=== PATIENT | female | born 1980 | race Caucasian/White ===

== ENCOUNTER 2021-04-07 09:17 | Emergency (ER) | payer OTHER ==
[~2021-04-07] VITALS: Ht 157.5 cm; Wt 62.6 kg
--- OUTSIDE RECORDS SUMMARY | 2021-04-07 09:26 | XMS ---
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 Kathi has no Care Guidelines for this patient. [place] VISIT COUNT (12 MO.) 1 [facility] TOTAL 1 NOTE: Visits indicate total known visits. ED/C VISIT TRACKING (12 MO.) 04/07/2021 09:19 [facility] [place] TYPE: Emergency COMPLAINT: - DIFFICULTY BREATHING, SHAKY, ANXIOUS INPATIENT VISIT TRACKING (12 MO.) No inpatient visits to display in this time frame [id number]
[2021-04-07] MEDS ORDERED: FLUOXETINE HCL40 MG PO (09:38)
[2021-04-07] MEDS ORDERED: ONDANSETRON ODT8 MG PO (10:57)
[2021-04-07] MEDS ORDERED: HYDROXYZINE HCL25 MG PO (10:57)
--- NOTE | 2021-04-09 17:50 | EKG ---
[facility] [address] [place], [place] [address] Signed Sinus tachycardia Otherwise normal ECG No previous ECGs available Confirmed by GHAZALA SALDAÑA MD ([id number]) on 04/09/2021 5:50:19 PM Electronically Signed By: GHAZALA SALDAÑA MD 04/09/21 1750 PATIENT NAME: ESTEE HUNG Electrocardiogram DATE OF : 82 PHYSICIAN: GHAZALA SALDAÑA MD REPORT #: [id number] REPORT IS CONFIDENTIAL AND NOT TO BE RELEASED WITHOUT AUTHORIZATION
== END 2021-04-07 11:40 | disposition home or self-care (01) ==
LOC: ED 09:17
DX: U07.1 COVID-19 (principal); D64.9 Anemia, unspecified; Z79.899 Other long term (current) drug therapy
CPT/HCPCS: 36415; 71045; 80053; 80503; 85025; 93005; 93010; 96374; 99285-25; J2550; J7030

== ENCOUNTER 2021-05-01 06:16 | Emergency (ER) | payer OTHER ==
[~2021-05-01] VITALS: Ht 157.5 cm; Wt 61.6 kg
[~2021-05-01 06:16] MED LIST: FLUOXETINE HCL40 MG PO; HYDROXYZINE HCL25 MG PO; ONDANSETRON ODT8 MG PO
--- OUTSIDE RECORDS SUMMARY | 2021-05-01 06:24 | XMS ---
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 Kathi has no Care Guidelines for this patient. E.D. VISIT COUNT (12 MO.) [facility] TOTAL 2 NOTE: Visits indicate total known visits. ED/C VISIT TRACKING (12 MO.) [facility]21 06[facility] COMPLAINT: - ALCOHOL WITHDRAWAL 04/07/2021 09:[address] [facility] [place] TYPE: Emergency COMPLAINT: - DIFFICULTY BREATHING, SHAKY, ANXIOUS DIAGNOSES: - Shortness of breath - Anemia, unspecified - Other correction (current) drug therapy - COVID-19 INPATIENT VISIT TRACKING (12 MO.) No inpatient visits to display in this time frame [id number]
[2021-05-01] MEDS ORDERED: ATIVAN2 MG PO (10:50)
== END 2021-05-01 11:16 | disposition home or self-care (01) ==
LOC: ED 06:16
DX: F10.239 Alcohol dependence with withdrawal, unspecified (principal); D64.9 Anemia, unspecified; Z79.899 Other long term (current) drug therapy; Z20.822 Contact with and (suspected) exposure to COVID-19
CPT/HCPCS: 36415; 80053; 83690; 84703; 85025; 96374; 96375; 99284-25; C9803; G0480; J2060; J2405; J7030; U0003

== ENCOUNTER 2021-05-08 16:07 | Emergency (ER) | payer OTHER ==
[~2021-05-08] VITALS: Ht 157.5 cm; Wt 61.2 kg
[~2021-05-08 16:07] MED LIST changes: +ATIVAN2 MG PO
--- OUTSIDE RECORDS SUMMARY | 2021-05-08 17:48 | XMS ---
PreManage Notification: ESTEE HUNG Security Machinist Helper Events No recent Security Events currently on file CRITERIA MET - [facility] - 2 Visits in 30 Days - ED - Positive COVID-19 Lab Result - [facility] CARE PROVIDERS There are no care providers on record at this time. Kathi has no Care Guidelines for this patient. E.D. VISIT COUNT (12 MO[address] [facility] TOTAL 3 NOTE: Visits indicate total known visits. ED/C VISIT TRACKING (12 MO.) 05/08/2021 16:08 [facility] [place] TYPE: Emergency COMPLAINT: - ALCOHOL WITHDRAWAL 05/01/2021 06:17 [facility] [place] TYPE: Emergency COMPLAINT: - ALCOHOL WITHDRAWAL DIAGNOSES: - Alcohol dependence with withdrawal, unspecified - Vomiting, unspecified - Other extermination supervisor (current) drug therapy - Anemia, unspecified 04/07/2021 09:19 [facility] [place] TYPE: Emergency COMPLAINT: - DIFFICULTY BREATHING, SHAKY, ANXIOUS DIAGNOSES: - Shortness of breath - Anemia, unspecified - Other detention (current) drug therapy - COVID-19 INPATIENT VISIT TRACKING (12 MO.) No inpatient visits to display in this time frame [id number]
[2021-05-08] MEDS ORDERED: CHLORDIAZEPOXID25 MG PO (19:09)
== END 2021-05-08 19:40 | disposition home or self-care (01) ==
LOC: ED 16:07
DX: F10.239 Alcohol dependence with withdrawal, unspecified (principal); D64.9 Anemia, unspecified; Z79.899 Other long term (current) drug therapy
CPT/HCPCS: 99284; A9270-GY

== ENCOUNTER 2021-06-27 08:38 | Inpatient (IN) | payer OTHER ==
[~2021-06-27] VITALS: Ht 157.5 cm; Wt 69.7 kg
[~2021-06-27 08:38] MED LIST changes: +CHLORDIAZEPOXID25 MG PO
--- OUTSIDE RECORDS SUMMARY | 2021-06-27 08:40 | XMS ---
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 - Has Care Guidelines CARE PROVIDERS RENEA GARCIA Emergency Medicine 05/09/2021-Current PHONE: [phone] Kathi has no Care Guidelines for this patient. Care History Medical/Surgical 05/09/2021 [facility] - Patient is currently established with [facility]. If patient is seen in the ED during business hours. Please contact CHWs at [facility]. Care Recommendation: If this patient has had 5 or more Emergency Department visits in the last 12 months.\T\nbsp;Patient will require education on the scope and purpose of the ED as an acute care provider not a Primary Care Provider and should not be utilized for chronic conditions.\T\nbsp; These are guidelines and the provider should exercise clinical judgment when providing care. 05/09/2021 [facility] Follow up on 05/09/2021 with Renea Mccarthy E.D. VISIT COUNT (12 MO.) 4 [facility] TOTAL 4 NOTE: Visits indicate total known visits. ED/UCC VISIT TRACKING (12 MO.) 06/27/2021 08:39 [facility] [place] TYPE: Emergency COMPLAINT: - SEIZURE 05/08/2021 16:08 [facility] [place] TYPE: Emergency COMPLAINT: - ALCOHOL WITHDRAWAL DIAGNOSES: - Anemia, unspecified - Other intermediate accountant (current) drug therapy - Alcohol dependence with withdrawal, unspecified 05/01/2021 06:17 [facility] [place] TYPE: Emergency COMPLAINT: - ALCOHOL WITHDRAWAL DIAGNOSES: - Alcohol dependence with withdrawal, unspecified - Vomiting, unspecified - Other intermediate accountant (current) drug therapy - Anemia, unspecified - Contact with and (suspected) exposure to COVID-19 04/07/2021 09:19 [facility] [place] TYPE: Emergency COMPLAINT: - DIFFICULTY BREATHING, SHAKY, ANXIOUS DIAGNOSES: - Shortness of breath - Anemia, unspecified - Other intermediate accountant (current) drug therapy - COVID-19 INPATIENT VISIT TRACKING (12 MO.) No inpatient visits to display in this time frame [id number]
[2021-06-27] MEDS ORDERED: HYDROXYZINE HCL25 MG PO (12:37)
--- NOTE | 2021-06-27 13:20 | NUR ---
PATIENT TO FLOOR VIA STRETCHER. VENT IN PLACE. VITALS CHARTED, WARM BLANKETS PROVIDED. S/O WAITING IN QUIET ROOM.
--- NOTE | 2021-06-27 14:26 | NUR ---
PATIENT ARRIVES TO CCU VIA STRETCHER FROM ER ON VENTILATOR. VENT SETTINGS ARE VT 470 ML, PEEP 5, FI02 40%, VC/AC 22. ETT IS SIZE 7 AND SECURED APPROX 24-25 AT THE LIP, BUT HARD TO SEE. CHEST XRAY SHOWED THAT ETT IS 9 MM ABOVE MARIA L, AND NEEDS TO BE PULLED BACK ADDITIONAL 3 CM. NO CHEST XRAY NEEDED AFTERWARDS PER DR. SALDAÑA. RT WILL PLACE OTHER SECUREMENT DEVICE ON ETT WELL. IVF ARE NOW INFUSING AT 100 ML/HR. IV MAGNESIUM INFUSING. PROPOFOL AT 80 MCG/KG/MIN AT THIS TIME. WRIST RESTRAINTS ON BILATERALLY. SKIN ASSESSMENT NORMAL AND NO OPEN AREAS OR BRUISES NOTED. PT DOES HAVE CUT FONTANEZ ON LEFT UPPER ARM THAT HER BOYFRIEND SEBAS STATES SHE SOMETIMES CUTS HERSELF BUT HASN'T DONE THIS IN THE LAST COUPLE OF MONTHS. SEBAS ALSO STATES THAT SHE HAS BECOME A HEAVY DRINKER ALONGSIDE HIM, BUT HAS CUT BACK SINCE THE BEGINNING OF THE YEAR. HE IS UNSURE OF HOW MUCH SHE IS ACCURATELY DRINKING, BUT DOES STATE THEY HAD SOME BEERS LAST EVENING. HE STATES THAT NORMALLY ON THE WEEKENDS THEY DRINK FAIRLY HEAVILY TOGETHER, BUT HE WASN'T ASSURE OF HOW MUCH SHE IS DRINKING THROUGH THE WEEK DAYS. PT'S MOTHER AND FATHER NOW IN ROOM AND GIVEN AN UPDATE. CONTINUE TO MONITOR CLOSELY.
--- NOTE | 2021-06-27 15:15 | NUR ---
REPOSITIONED. PROPOFOL DECREASED TO 80 MCG/KG/MIN. CALM AT THIS TIME. RT HERE TO DRAW ABG. FAMILY MEMBERS ARE IN ROOM.
--- NOTE | 2021-06-27 16:30 | NUR ---
PT REMAINS ON PROPOFOL AT 80 MCG/KG/MIN. PT NOW RESTING MORE COMFORTABLY. TUBE FEEDS STARTED AROUND 1600 AT 20 ML/HR AND WILL BE INCREASED BY 10 ML AROUND 0000. NGT RETAPED EARLIER TODAY TO NOSE AND POINT OF CONTACT WITH NARE MARKED WITH BLACK MARKER. IVF CONTINUE AT 100 ML/HR. URINE OUTPUT APPEARS ADEQUATE AND IS LIGHT YELLOW/LIGHT GREEN IN COLOR. VENT SETTINGS REMAIN VT 470, PEEP 5, VC/AC 15, AND FI02 OF 30%. 1800 LABS TO BE DRAWN. CONTINUE TO MONITOR.
--- NOTE | 2021-06-27 16:50 | NUR ---
Attempted to see pt's family as she is on a vent. They have left for the day. Will follow up tomorrow.
--- NOTE | 2021-06-27 18:26 | NUR ---
LAB IN ROOM DRAWING 1800 LABS AT THIS TIME. PROPOFOL NOW INFUSING AT 70 MCG/KG/MIN AND WILL CONTINUED TO BE TITRATED DOWN TO ACHIEVE RASS GOAL OF -2. PT IS CURRENTLY -5. ETT REMAINS 21 AT THE TEETH. TUBE FEEDS INFUSING AT 20 ML/HR. HR IN THE 70s SINUS RHYTHM. LAST BP 93/62 (72). PT'S FAMILY HAS LEFT FOR THE EVENING. LUNG SOUNDS REMAIN CLEAR UPON AUSCULTATION. CONTINUE TO MONITOR CLOSELY.
--- NOTE | 2021-06-27 20:00 | NUR ---
PT IS IN BED- SEDATED AND VENTED. RASS +2 - PROPOFOL TITRATED. NGT WITH TF. ETT IN PLACE. MENESES DRAINING YELLOW URINE. MEDICATION ADMINISTERED VIA NGT. VSS. WILL CONT TO MONITOR.
--- NOTE | 2021-06-27 22:02 | NUR ---
PT IS SEDATED AND VENTED- TOLERATING CURRENT VENT SETTINGS. APPEARS COMFORTABLE AT THIS TIME. VSS. WILL CONT TO MONITOR.
--- NOTE | 2021-06-27 23:54 | NUR ---
PT REMAINS SEDATED ON THE VENT WITH BUE WRIST RESTRAINTS IN PLACE. SKIN IS WARM TO THE TOUCH W/ GOOD SKIN TURGOR AND GOOD CAP REFILL. TOLERATING CURRENT VENT SETTINGS. APPEARS COMFORTABLE AT THIS TIME. VSS. WILL CONT TO MONITOR.
--- NOTE | 2021-06-28 02:20 | NUR ---
PT REMAINS SEDATED AND VENTED; TOLERATING CURRENT VENT SETTINGS. VSS. IVF INFUSING. ZAIRA PATENT. NGT WITH TF- TOLERATING. WILL CONT TO MONITOR.
--- NOTE | 2021-06-28 04:33 | NUR ---
PT REMAINS SEDATED AND ON VENTILATOR. APPEARS COMFORTABLE WITH CURRENT SEDATION SETTINGS; TOLERATING VENT. VSS. TF VIA NGT. MENESES PATENT WITH ADEQUATE URINARY OUTPUT.
--- NOTE | 2021-06-28 08:03 | NUR ---
Spoke with pts father as she is on a vent. He states pt has lived and cont. to live with them. She lives in their basement. She has had anxiety issues and alcohol/drug abuse for several years. Pt has gone through rehab in the past. He frequently is asking questions about pt previous admission and I let him know I cannot provide him with any infomration until I have consent from Lucy. He cont. to asks about herprevious admissions and this admission regarding drugs and alcohol. Each time I let him know I cannot provide this info. He also states he wants to be involved in her discharge and any treatment. Let him know I can offer resources to his daughter, but I cannot make her accept them. Let him know I will follow up with pt when she is off the ventilator.
--- NOTE | 2021-06-28 08:17 | NUR ---
IN ROOM TO DO ASSESSMENT, PT'S FATHER IS ALSO HERE VISITING. RASS -4, PROPFOL TURNED DOWN TO 70MCG/KG/HR FROM 80. VSS STABLE. SMALL AMOUNT OF VAGINAL BLEEDING NOTED, PT HAS A HISTORY OF HEAVY PERIODS. ANTICIPATE TRIAL SEDATION LIGHTENING WITH POTENTIAL EXTUBATION. TEMP 100.0F. O2 98% ON VENTILATOR AT FIO2 30, VT 470, TI90.95, RR 15, PEEP 5.
--- NOTE | 2021-06-28 09:00 | NUR ---
IN ROOM TO ADMINISTER MEDS, PROPOFOL DECREASED TO 60MCG/KG/MIN. RASS -4.
--- NOTE | 2021-06-28 09:45 | NUR ---
Temperature noted to be 100.8F axillary with last vitals, rechecked at 100.3F [address] Chopra notified. No further orders at this time.
--- NOTE | 2021-06-28 10:00 | NUR ---
BATH GIVEN, LINENS CHANGED. PT TOLERATED VERY WELL, ABLE TO FOLLOW COMMANDS AND HELP TURN HERSELF. RASS -3
--- NOTE | 2021-06-28 10:30 | NUR ---
IMAGING HERE TO GET CHEST XRAY AND LAB IN TO COLLECT BLOOD CULTURES AND UA. PT INDICATING UNDERSTANDING OF PROCEDURES BY NODDING HEAD AFTER VERBAL EXPLANATIONS GIVEN. PROPOFOL TURNED DOWN TO 50 MCG/KG/HR.
--- NOTE | 2021-06-28 10:45 | NUR ---
2PA FOR COMPLETE BEDBATH. PATIENT RESPONDING TO SIMPLE COMMANDS AND IS ABLE TO ASSIST WHEN TURN HER BODY. MENESES CARE PROVIDED. NEW DRAW SHEET AND CHUX UNDERNEATH. VENT AND RESTRAINTS IN PLACE. PATIENT HAS NO OTHER NEEDS AT THIS TIME.
--- NOTE | 2021-06-28 10:52 | NUR ---
DR SALDAÑA IN TO SEE PT. PT ABLE TO OPEN EYES AND NOD HEAD IN UNDERSTANDING OF DISCUSSION OF PLAN OF CARE. PLAN TO TURN DOWN PROPOFOL BY 50% AND MONITOR RESPONSE. PROPOFOL TURNED DOWN TO 25 MCG/KG/MIN. FATHER RETURNED TO ROOM AND UPDATED WELL. PT RESTIING IN BED WITH BOTH ARMS SECURED IN SOFT RESTRAINTS.
--- NOTE | 2021-06-28 10:55 | NUR ---
TRIAL OF EXTUBATION INITIAITED, PROPOFOL OFF AT 1055. RT IN ROOM AND PT SWITCHED TO CPAP MODE AT THIS TIME. PLAN EXPLAINED TO PT WHO NODS IN UNDERSTANDING. PT ABLE TO FOLLOW COMMANDS BUT KEEPING EYES SHUT. O2 SATS REMAIN AT 99%. WILL CONTINUE TO MONITOR CLOSELY.
--- NOTE | 2021-06-28 11:08 | NUR ---
medications reconciled
--- NOTE | 2021-06-28 12:18 | NUR ---
PT TOLERATING TRIAL FOR EXTUBATION WELL, SHOWING SIGNS OF RESTLESSNESS AND ANXIETY. REASSURANCE AND REORIENTATION GIVEN, PT INDICATES UNDERSTANDING OF PLAN WITH NODDING HEAD AND IS MAKING EYE CONTACT. DR SALDAÑA IN ROOM TO EVALUATE CURRENT STATUS. WILL CONTINUE TO MONITOR.
--- NOTE | 2021-06-28 12:25 | NUR ---
RT MAYA IN ROOM TO DO PRE-EXTUBATION TESTING. DR SALDAÑA ALSO PRESENT TO ASSESS. PT TOLERATING WELL.
--- NOTE | 2021-06-28 12:31 | NUR ---
APPROVAL TO EXTUBATE GIVEN BY DR SALDAÑA, NG TUBE REMOVED, RT MAYA PROCEEDING WITH EXTUBATION.
--- NOTE | 2021-06-28 12:35 | NUR ---
PT EXTUBATED, TOLERATED WELL. VERBALIZES "I DON'T KNOW WHAT HAPPENED". O2 100% ON 3L O2 PER NC, RR 20, HR 109. RESTRAINED REMOVED, PT BEING REORIENTED BY OWEN DOMINGUEZ.
--- NOTE | 2021-06-28 12:45 | NUR ---
PT SETTLED IN TO BED WITH BLANKETS AND PILLOWS FOR COMFORT WITH CALL LIGHT IN REACH. VSS, NO FURTHER NEEDS AT THIS TIME.
--- NOTE | 2021-06-28 14:00 | NUR ---
Spoke with pt, she is off the vent and boyfriend is in the room. Updated I had spoken with her father earlier for her assessment. He had asked for information about her previous admissions and I was not able to tell him. She states it is ok to provide him with any information if he asks about. Attempted to discuss plan with pt and if she would like to speak with [facility]. She does not feel her admission was due to alcohol. I gave her a card for [facility] and let her know she can call them at anytime if she changes her mind.
--- NOTE | 2021-06-28 14:16 | NUR ---
PATIENT RESTING QUIETLY IN BED, WAKES EASILY TO VOICE. VITALS AND I&OS CHARTE. MENESES EMPTIED. CALL LIGHT IN EASY REACH
--- NOTE | 2021-06-28 14:20 | NUR ---
Pt temp up to 101.3F axillary, then 101.0F orally at 1400. New expiratory wheezes heard in right upper and lower lung. Incentive spirometer given, pt able to use it effectively with good coughing afterward. Dr. Chopra notified of increased temperature, awaiting orders for antibiotics and nebulizer treatments. Cultures/UA/CXR were done this morning after first increased temp. Pt now on room air with O2 sats 94-96%.
--- NOTE | 2021-06-28 15:46 | NUR ---
Pt's family is here to visit. Pt was resting in bed when they arrived, O2 sats 96% on room air, VSS. Family and patient updated on the events of the day. Pt complains of slight sore throat, resolves with sips of water. IS at bedside and encouraged. No further needs at this time.
--- NOTE | 2021-06-28 16:10 | NUR ---
Pt's family appeared to be causing her distress, when asked if she was still feelign up to having visitors she states no, family said their good byes and was reassured that she had a phone in her room and could call if she felt more up to having company later. Assessment done, pt states she has a pounding headache, and has had blurry vision since waking up from sedation. VSS, sats 100% on room air.
--- NOTE | 2021-06-28 17:42 | NUR ---
DR SALDAÑA AWARE OF BLURRY VISION SINCE WAKING UP FROM SEDATION AND NEW ONSET HEADACHE AND NEW FINDING THAT A TAMPON WAS REMOVED WHILE MENESES WAS BEING PLACED IN ER, DURATION OF WEAR UNKNOWN. PT CURRENTLY RESTING IN BED, O2 SATS DROPPED TO MID 80'S ON ROOM AIR AND KRYSTEN UP TO 91% WITH REPOSITIONING. PT COUGHING UP SMALL AMOUNTS OF THICK YELLOWISH SPUTUM NOW. HR RUNNING 105-115.
--- NOTE | 2021-06-28 19:09 | EKG ---
[facility] [address] [place] [address] Signed Sinus tachycardia Right axis deviation Incomplete right bundle branch block Possible Right ventricular hypertrophy Abnormal ECG When compared with ECG of 07-APR-2021 09:33, Incomplete right bundle branch block is now present Confirmed by GHAZALA SALDAÑA MD ([id number]) on 06/28/2021 7:09:19 PM Electronically Signed By: GHAZALA SALDAÑA MD 06/28/21 1909 PATIENT NAME: ABHILASHESTEE JOY Electrocardiogram DATE OF : 82 PHYSICIAN: GHAZALA SALDAÑA MD REPORT #: [id number] REPORT IS CONFIDENTIAL AND NOT TO BE RELEASED WITHOUT AUTHORIZATION
--- NOTE | 2021-06-28 20:30 | NUR ---
IV ABX STARTED PER ORDER, IV SITE WNL. IV FLUIDS INFUSING. PATIENT IS DROWSY BUT WAKES TO VERBAL STIMULATION. DENIES ANY NEEDS. VS STABLE. PATIENT IS CALM. GOOD URINE OUTPUT. ALLOWED PATIENT TO REST.
--- NOTE | 2021-06-28 22:15 | NUR ---
PATIENT IS RESTING IN BED WITH EYES CLOSED. VS STABLE. APPEARS COMFORTABLE. ALLOW PATIENT TO REST. CALL LIGHT IN REACH.
--- NOTE | 2021-06-29 00:09 | NUR ---
PATIENT CONTINUES TO REST QUIETLY. VS STABLE. IV LFUIDS PER ORDER, SITE WNL. MENESES DRAINING FREELY, OUTPUT QS.
--- NOTE | 2021-06-29 01:00 | NUR ---
PATIENT CALLED FOR MORE ICE WATER WHICH WAS PROVIDED. PATIENT REPORTS FEELING "TERRIBLE" BUT WITH EXPLANATION THIS SEEMS TO BE EMOTIONALLY RELATED AND NOT PHYSICALY. PATIENT ASSISTED TO REPOSITION AND WARM BLANKET PROVIDED. NO SIGNS OF WITHDRAWL AT THIS TIME. PATIENT IS EMOTIONAL AND WANTING TO GO HOME. DISCUSSED POSITIVES OF PATIENT'S CURRENT MEDICAL STATUS SUCH NO FEVERS AND STABLE VS. ASSURED PATIENT SHE WAS SAFE AND ENCOURAGED REST. PATIENT DENIED OTHER NEEDS, APPEARS MORE CALM. CALL LIGHT IN REACH.
--- NOTE | 2021-06-29 03:05 | NUR ---
IV ABX STARTED PER ORDER. PATIENT RESTING WITH EYES CLOSED. VS STABLE.
--- NOTE | 2021-06-29 04:13 | NUR ---
PATIENT CALLED FOR ASSISTANCE. MONITOR LINES AND IV TUBING WRAPPED AROUND PATIENT DUE TO ROLLING IN THE BED. PATIENT UNATTACHED FROM MONITOR AND STOOD AT EDGE OF BED. MENSTRUAL BLOOD ON CHUCKS. LINENS CHANGED. PATIENT AMBULATED INTO THE BATHROOM AND CLEANED HERSELF. KATHY PAD AND UNDERWEAR PROVIDED. PATIENT ANXIOUS AND EMOTIONAL, REPORTS FEELING OVERWHELMED BY THE AMOUNT OF THINGS ATTACHED TO HER. MENESES DC AND IV FLUIDS LEFT IN STAND BY FOR NOW. PATIENT HAS HAD GOOD ORAL INTAKE AND URINE OUTPUT. IV SITE IN LEFT FOREARM IS PAINFUL AND PARTIALLY PULLED; IV SITE DC WNL. PATIENT BACK IN BED AND APPEARS MORE CALM. SHE HAS SEVERAL QUESTIONS ABOUT HER VS AND TREATMENT PLAN, ALL QUESTIONS ANSWERED. PATIENT RESTING MORE CALMLY IN BED NOW. CALL LIGHT IN REACH.
--- NOTE | 2021-06-29 08:00 | NUR ---
INTO PT ROOM TO ROUND, ASSESSMENT COMPLETE, VILMA Grimes.Axel INTO ROOM ALSO FOR BREATHING TREATMENT. PT IS CRYING, QUANG BARBOSA IS AT BEDSIDE FOR SUPPORT. THIS RN DISCUSSED STOP SMOKING, SHE SAID SHE IS GOING TO NO LONGER SMOKE, CIWA NEGATIVE, PRODUCTIVE COUGH AND SORE THROAT, TYLENOL 500MG PO PRN ADMINISTERED AT THIS TIME.
--- NOTE | 2021-06-29 08:15 | NUR ---
PATIENT AWAKE IN BED, VERY EMOTIONAL AND IN TEARS THIS MORNING. RN AWARE. PATIENT HAD A SMALL AMOUT OF EMESIS OUT AFTER EATING CUP OF JELLO AND A COUPLE SIPS OF COFFEE. LINENS CHANGED AND PATIENT CLEANED UP. SBA TO BATHROOM FOR VOID. [facility] PROVIDED FOR SELF CLEANING. PATIENT NOW IN BED AND RN AT BEDSIDE. CALL LIGHT IN REACH
--- NOTE | 2021-06-29 09:00 | NUR ---
PT ASSISTED STANDBY TO BATHROOM AT THIS TIME TO VOID. TOLERATED ACTIVITY WELL. SHE HAS NO REPORT OF PAIN OR NAUSEA TO ME, SHE HAS A PRODUCTIVE COUGH. SHE IS EMOTIONALLY LABILE, INTERMITTEN CRYING, TO LAUGHING AND JOKING WTIH LINDSAY RN.
--- NOTE | 2021-06-29 10:06 | NUR ---
PT IS RESTING QUIETLY IN BED ON HER RIGHT SIDE, EYES CLOSED RR EVEN NO DISTRESS AT THIS TIME. RELAXED POSITION.
[2021-06-29] MEDS ORDERED: NICOTINE1 EAC2 TD (10:42)
[2021-06-29] MEDS ORDERED: AMOX TR-K CLV1 EAC1 PO (10:43)
[2021-06-29] MEDS ORDERED: NICOTINE LOZENGE4 MG BUCCAL (10:43)
[2021-06-29] MEDS ORDERED: AZITHROMYCIN500 MG PO (10:44)
[2021-06-29] MEDS ORDERED: FERROUS SULFAT325 MG PO (10:52)
--- NOTE | 2021-06-29 11:15 | NUR ---
PT DISCHARGE PACKET GIVEN WITH EDUCATION OF SIGNS AND SYMTPOMS TO SEEK MEDICAL ASSESSMENT, AT URGENT CARE OR E.D. DEPENDING ON SEVERITY. PT VERBALIZE EDUCATION BACK, DISCUSSED SMOKING CESSATION AND USE OF NICOTINE REPLACEMENT. RX SENT TO [facility], FOR ABX TO BE CONT FOR 4 DAYS AND NICOTINE PATCHES AND LOZENGES. EDUCATION PACKETS PROVIDED, PT HAS NO QUESTIONS. V/S, STABLE, PT IS 100% OXYGEN SATURATION ON ROOM AIR AT THIS TIME. HER LUNGS ARE CLEAR, COARSE IN THE UPPER LOBES, SHE HAS A PRODUCTIVE COUGH.
[2021-06-29] MEDS ORDERED: IRON325 M1 PO (11:24)
--- NOTE | 2021-06-29 13:30 | NUR ---
Received a call from pts father. Pt as been discharge and he wanted to follow up about a plan for his daughter. UPdated I spoke with his daughter yesterday after she was off the vent. She gave permission for me to give him any information he requested. Let him know, I offered to call [facility] to visit with her. She did not feel alcohol had anything to do with her admission. I had a student nurse with me and he gave her a [facility] card and we encouraged her to call them any time. The dad asks about counseling and states they have tried to find counseling, but are not having any luck. Let him know it has been very difficult with the pandemic and appointments are months out. I gave him the name of counselors in [place] and [facility] as pt is on the [facility]. I also gave him the number for [facility] and encouraged him to call one or both. He then asked about her dc instructions and I read them to him and he also had question about her discharge diagnosis. I read him the discharge summary.
== END 2021-06-29 11:56 | disposition home or self-care (01) | DRG 208 ==
LOC: ED 08:38 → CCU 12:07
PROVIDERS: ADMIT Internal Medicine; ATTEND Internal Medicine
PROC: 5A1935Z Respiratory Ventilation, Less than 24 Consecutive Hours (ICD-10-PCS; principal; 2021-06-27)
PROC: 0BH18EZ Insertion of Endotracheal Airway into Trachea, Via Natural or Artificial Opening Endoscopic (ICD-10-PCS; 2021-06-27)
PROC: 5A09357 Assistance with Respiratory Ventilation, Less than 24 Consecutive Hours, Continuous Positive Airway Pressure (ICD-10-PCS; 2021-06-28)
DX: J96.01 Acute respiratory failure with hypoxia (principal); F10.239 Alcohol dependence with withdrawal, unspecified; G40.509 Epileptic seizures related to external causes, not intractable, without status epilepticus; Z20.822 Contact with and (suspected) exposure to COVID-19; D50.9 Iron deficiency anemia, unspecified; Z79.899 Other long term (current) drug therapy; F41.9 Anxiety disorder, unspecified; F32.A Depression, unspecified; F17.210 Nicotine dependence, cigarettes, uncomplicated
CPT/HCPCS: 31720; 36415; 36600; 70450; 71045; 80048; 80053; 81001; 82040; 82306; 82607; 82728; 82803; 83540; 83550; 83605; 83690; 83735; 84100; 84425; 84703; 85025; 85610; 85730; 87040; 93005; 93010; 94002; 94003; 94640; 99406; A9270; C9113; C9803; G0480; J0295; J1650; J2250; J2560; J2704; J3010; J3360; J3411; J3475; J7121; U0003